=== PATIENT | male | born 1985 | race Caucasian/White ===

== ENCOUNTER 2024-08-20 02:59 | Emergency (ER) | payer OTHER, SELFPAY ==
[2024-08-20 03:06] VITALS: BP 133/90; PULSE 138; RESP 18; TEMP 36.9; O2SAT 100; BMI 39.5
--- NOTE | 2024-08-20 03:28 | ED_ITS ---
Discharge Plan Disposition Patient Disposition: Home, Self-Care Condition: Good Prescriptions Prescriptions: New ondansetron 4 mg tablet,disintegrating 4 mg PO Q6H PRN (Reason: nausea and vomiting) Qty: 10 0RF Referrals Follow up/Referrals: Kavya Alves APRN [Primary Care Provider] - See instructions Activity Restrictions/Add. Instructions Additional Instructions/Restrictions: You were evaluated in the emergency department today and diagnosed with norovirus. Please practice good handwashing at home. Eat a bland diet until symptoms are resolved. I recommend staying hydrated is much as possible. 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 Take Tylenol and ibuprofen as needed for pain. Clinical Impressions Clinical Impression: Nausea, vomiting, and diarrhea, Prerenal azotemia, Norovirus Stand Alone Forms Stand Alone Forms: Work/School Release Instructions Patient Instructions: DI for Diarrhea and Traveler's Diarrhea -- Adult, DI for Nausea -- Adult Print Language Print Language: [place] Discharge ED Provider: Vilma Quiroz General Adult HPI <Vilma Quiroz MD - Last Filed: 08/20/24 06:40> General Chief complaint: Nausea/Vomiting/Diarrhea Stated complaint: vomiting, diarrhea, nausea Time Seen by Provider: 08/20/24 03:27 Mode of Arrival: Ambulatory Source of Information: Patient Description of Symptoms (Recalled from ER Triage Doc. by RN): PT C/O NVD STARTING AROUND 0 LAST NIGHT, DENIES PAIN/FEVER. History of Present Illness HPI narrative: 39-year-old male presents to the ER with complaints of nausea, vomiting, diarrhea. Symptoms started approximately 8 hours after patient ate [place] chili. He is concerned for food poisoning. did not eat the same thing is him and does not have similar symptoms. is so was concerned if he potentially has anything infectious whether it could be dangerous to baby. Patient reports he has not had bloody or bilious emesis, diarrhea has not been bloody or melanotic. He does state he is now having bowel movements of straight water . No medications prior to arrival. Patient is concerned he is dehydrated. He reports feeling generally unwell but no specific pain, no known fevers, no chest pain or difficulty breathing, no other associated symptoms. Related Data Previous Rx's ?Medication ?Instructions ?Recorded ondansetron 4 mg disintegrating 4 mg PO Q6H PRN nausea and 08/20/24 tablet vomiting #10 tabs Allergies Allergy/AdvReac Type Severity Reaction Status Date / Time No Known Allergies Allergy Verified 05/21/19 16:32 PFSH <Vilma Quiroz MD - Last Filed: 08/20/24 06:40> PFSH Disclaimer: The information contained in this section may have been updated after the patient was seen, as this information can be updated by other users. Medical History (Updated 08/20/24 @ 07:10 by Francheska Mckee DO) Factor 5 Leiden mutation, heterozygous Social History (Updated 08/20/24 @ 06:40 by Vilma Quiroz MD) Smoking Status: Never smoker alcohol intake: never current occupational status: employed Travel in the last 8 weeks: None Have you lived/traveled outside [place] in past 30 days?: No Contact w/someone who lives/traveled outside US past 30 days?: No Exposure to someone with infectious disease in past 14 days?: No Do you have a fever (greater than 100.4 F or 38 C)?: No Have you tested positive for COVID-19: No Exposed to someone with COVID-19 in past 14 days?: No Do you have a sore throat?: No Do you have a cough?: No Do you have any weakness?: No Do you have any diarrhea?: Yes Are you experiencing any unusual bleeding?: No Do you have any muscle aches/pain?: No Do you have any abdominal pain?: No Are you experiencing loss of taste or smell?: No <Vilma Quiroz MD - Last Filed: 08/20/24 06:40> ROS Obtained: Yes Systems reviewed as appropriate & no additional complaints except as documented Per HPI Physical Exam <Vilma Quiroz MD - Last Filed: 08/20/24 06:40> General General appearance: alert, in no apparent distress and obese Head Head exam: atraumatic and normocephalic Eye Eye exam: Present PERRL and EOMI ENT ENT exam: Present mucous membranes moist Neck Neck exam: Present normal inspection and full ROM Chest Chest inspection: Present symmetric chest wall rise Respiratory Respiratory exam: Present normal lung sounds bilaterally; Absent respiratory distress, wheezes or stridor Cardiovascular Cardiovascular exam: Present normal rhythm and tachycardia Abdominal Exam Abdominal exam: Present soft; Absent distention or tenderness Extremities Exam Extremities exam: Present full ROM Neurological Exam Neurological exam: Present alert and oriented X3; Absent motor sensory deficit Psychiatric Psychiatric exam: Present normal affect and normal mood Skin Skin exam: Present warm and dry Medical Decision Making <Vilma Quiroz MD - Last Filed: 08/20/24 06:40> Medical Records Screening: Per USPSTF and CDC recommendations, given the prevalence of disease in our region, it is our hospital?s policy to screen for HIV and viral Hepatitis for all patients aged 18 and over and those with ongoing risk factors. [place] Inquiry Pt receiving controlled substance: No Vital Signs: 08/20/24 03:06 08/20/24 03:30 08/20/24 05:24 Temperature 98.4 F Temperature Source Oral Pulse Rate 132 H 119 H Pulse Rate [Apical] 138 H Respiratory Rate 18 Blood Pressure 131/97 H 114/68 Blood Pressure [Right Arm] 133/90 Blood Pressure Mean [Right Arm] 104 02 Sat by Pulse Oximetry 100 97 97 Oxygen Delivery Method Room Air Room Air Room Air Lab Data Lab Results 08/20/24 03:47: WBC 16.6 H, RBC 6.28 H, Hgb 18.1 H, Hct 53.4 H, MCV 85.0, MCH 28.8, MCHC 33.9, RDW 13.6, Plt Count 302, MPV 10.0, Neut % (Auto) 94.0 H, Lymph % (Auto) 2.1 L, [place] % (Auto) 2.7, Eos % (Auto) 0.4, Baso % (Auto) 0.4, Neut # (Auto) 15.6 H, Lymph # (Auto) 0.4 L, [place] # (Auto) 0.4, Eos # (Auto) 0.1, Baso # (Auto) 0.1, Total Counted 100, Neutrophils % (Manual) 96 H, Lymphocytes % (Manual) 1 L, Monocytes % (Manual) 1 L, Eosinophils % (Manual) 2, Platelet Estimate Normal, RBC Morphology Normal, Sodium 143, Potassium 5.1, Chloride 104, Carbon Dioxide 24, Anion Gap 20.1 H, BUN 21 H, Creatinine 1.00, Estimated Creat Clear 191, Estimated GFR 83, Est GFR ( Amer) 101, Glucose 175 H, Calcium 10.4 H, Total Bilirubin 0.9, AST 35, ALT 50, Alkaline Phosphatase 71, Total Protein 9.2 H, Albumin 5.7 H, Globulin 3.5 H, Albumin/Globulin Ratio 1.6 08/20/24 03:52: Stl Aeromonas (PCR) Not detected, Stl C. cayetanensis PCR Not detected, Stool Rotavirus (PCR) Not detected, Stl Adenov F 40/41 PCR Not detected, Stool Astrovirus (PCR) Not detected, Stool Campylobacter PCR Not detected, Stl C.difficile Tox PCR Not detected, Stool Cryptosporidium PCR Not detected, Stl E.coli Shiga Tox PCR Not detected, Stool E coli O157 PCR Not detected, Stl Enterotoxigenic E PCR Not detected, Stool EPEC (PCR) Not detected, Stool EAEC (PCR) Not detected, Stl E. histolytica PCR Not detected, Stool Giardia Lamblia PCR Not detected, Stool Salmonella PCR Not detected, Stool Sapovirus (PCR) Not detected, Stl P. shigelloides PCR Not detected, Stl Shigella/EIEC PCR Not detected, St Y.enterocolitica PCR Not detected, Stool Vibrio (PCR) Not detected, Stl Vibrio cholerae PCR Not detected, Stl Norovirus GI/GII PCR Detected A 08/20/24 03:47 08/20/24 03:47 Orders (Tests/Meds): ED MEDICATIONS Discontinued Medications Generic Name Dose Route Start Last Admin Trade Name Freq PRN Reason Stop Dose Admin Acetaminophen 1,000 mg 08/20/24 04:53 08/20/24 05:00 Acetaminophen 500mg Tab PO 08/20/24 04:54 1,000 mg ONCE ONE Administration Calcium Carbonate 500 mg 08/20/24 07:12 08/20/24 07:25 Calcium Carbonate 500mg Chewtab PO 08/20/24 07:13 500 mg ONCE ONE Administration Lactated Ringer's 1,000 mls @ 999 mls/hr 08/20/24 03:28 08/20/24 03:42 Lactated Ringer's 1000 Ml Bag IV 08/20/24 04:28 999 mls/hr .Q1H1M ONE Administration Lactated Ringer's 1,000 mls @ 999 mls/hr 08/20/24 05:17 08/20/24 05:24 Lactated Ringer's 1000 Ml Bag IV 08/20/24 06:17 999 mls/hr .Q1H1M ONE Administration Ondansetron HCl 4 mg 08/20/24 03:28 08/20/24 03:42 Ondansetron 4mg/2ml Vial IV 08/20/24 03:29 4 mg ONCE ONE Administration Ondansetron HCl 4 mg 08/20/24 06:21 08/20/24 06:35 Ondansetron 4mg/2ml Vial IV 08/20/24 06:22 4 mg ONCE ONE Administration ORDERS Category Date Time Status CBC w/Auto Diff [Complete Blood Count Auto Diff] Stat Lab 08/20/24 03:47 Completed CMP [Comprehensive Metabolic Panel] Stat Lab 08/20/24 03:47 Completed Diarrhea 6-11 Panel, Cdiff PCR Stat Lab 08/20/24 03:52 Completed Medical Decision Narrative: In summary, this 39-year-old male presents to the emergency department today with nausea, vomiting, diarrhea. On initial evaluation patient is tachycardic but otherwise hemodynamically stable, afebrile, abdominal exam benign, no peripheral edema, lungs clear bilaterally. Differential diagnosis includes but is not limited to viral syndrome, considered food poisoning, electrolyte abnormality, dehydration, infectious diarrhea, among others. Based on these concerns, I ordered basic serum labs, diarrhea panel. Patient's abdominal exam is benign so I do not believe imaging is indicated at this time. Patient received IV fluids, Zofran for treatment. He also developed headache and received Tylenol. Labs personally reviewed demonstrate leukocytosis, elevated hemoglobin, believe labs are likely related to hemoconcentration. CMP demonstrates findings of dehydration with prerenal azotemia. On reassessment patient reports he still feels dehydrated. Additional fluids are being administered. His tachycardia has improved. He states he is feeling nauseous still but has not had any additional emesis. Additional Zofran administered. Diarrhea panel pending. Patient's had to leave briefly to take the kids to school. He is still receiving IV fluids. I prescribed Zofran for outpatient management of symptoms. Patient handed off to Dr. Mckee in stable condition pending completion of diarrhea panel. I believe he will likely be appropriate for discharge after this and completing IV fluids. <Francheska Mckee, DO - Last Filed: 08/20/24 07:34> Vital Signs: 08/20/24 03:06 08/20/24 03:30 08/20/24 05:24 Temperature 98.4 F Temperature Source Oral Pulse Rate 132 H 119 H Pulse Rate [Apical] 138 H Respiratory Rate 18 Blood Pressure 131/97 H 114/68 Blood Pressure [Right Arm] 133/90 Blood Pressure Mean [Right Arm] 104 02 Sat by Pulse Oximetry 100 97 97 Oxygen Delivery Method Room Air Room Air Room Air Lab Data Lab Results 08/20/24 03:47: WBC 16.6 H, RBC 6.28 H, Hgb 18.1 H, Hct 53.4 H, MCV 85.0, MCH 28.8, MCHC 33.9, RDW 13.6, Plt Count 302, MPV 10.0, Neut % (Auto) 94.0 H, Lymph % (Auto) 2.1 L, [place] % (Auto) 2.7, Eos % (Auto) 0.4, Baso % (Auto) 0.4, Neut # (Auto) 15.6 H, Lymph # (Auto) 0.4 L, [place] # (Auto) 0.4, Eos # (Auto) 0.1, Baso # (Auto) 0.1, Total Counted 100, Neutrophils % (Manual) 96 H, Lymphocytes % (Manual) 1 L, Monocytes % (Manual) 1 L, Eosinophils % (Manual) 2, Platelet Estimate Normal, RBC Morphology Normal, Sodium 143, Potassium 5.1, Chloride 104, Carbon Dioxide 24, Anion Gap 20.1 H, BUN 21 H, Creatinine 1.00, Estimated Creat Clear 191, Estimated GFR 83, Est GFR ( Amer) 101, Glucose 175 H, Calcium 10.4 H, Total Bilirubin 0.9, AST 35, ALT 50, Alkaline Phosphatase 71, Total Protein 9.2 H, Albumin 5.7 H, Globulin 3.5 H, Albumin/Globulin Ratio 1.6 08/20/24 03:52: Stl Aeromonas (PCR) Not detected, Stl C. cayetanensis PCR Not detected, Stool Rotavirus (PCR) Not detected, Stl Adenov F 40/41 PCR Not detected, Stool Astrovirus (PCR) Not detected, Stool Campylobacter PCR Not detected, Stl C.difficile Tox PCR Not detected, Stool Cryptosporidium PCR Not detected, Stl E.coli Shiga Tox PCR Not detected, Stool E coli O157 PCR Not detected, Stl Enterotoxigenic E PCR Not detected, Stool EPEC (PCR) Not detected, Stool EAEC (PCR) Not detected, Stl E. histolytica PCR Not detected, Stool Giardia Lamblia PCR Not detected, Stool Salmonella PCR Not detected, Stool Sapovirus (PCR) Not detected, Stl P. shigelloides PCR Not detected, Stl Shigella/EIEC PCR Not detected, St Y.enterocolitica PCR Not detected, Stool Vibrio (PCR) Not detected, Stl Vibrio cholerae PCR Not detected, Stl Norovirus GI/GII PCR Detected A Orders (Tests/Meds): ED MEDICATIONS Discontinued Medications Generic Name Dose Route Start Last Admin Trade Name Freq PRN Reason Stop Dose Admin Acetaminophen 1,000 mg 08/20/24 04:53 08/20/24 05:00 Acetaminophen 500mg Tab PO 08/20/24 04:54 1,000 mg ONCE ONE Administration Calcium Carbonate 500 mg 08/20/24 07:12 08/20/24 07:25 Calcium Carbonate 500mg Chewtab PO 08/20/24 07:13 500 mg ONCE ONE Administration Lactated Ringer's 1,000 mls @ 999 mls/hr 08/20/24 03:28 08/20/24 03:42 Lactated Ringer's 1000 Ml Bag IV 08/20/24 04:28 999 mls/hr .Q1H1M ONE Administration Lactated Ringer's 1,000 mls @ 999 mls/hr 08/20/24 05:17 08/20/24 05:24 Lactated Ringer's 1000 Ml Bag IV 08/20/24 06:17 999 mls/hr .Q1H1M ONE Administration Ondansetron HCl 4 mg 08/20/24 03:28 08/20/24 03:42 Ondansetron 4mg/2ml Vial IV 08/20/24 03:29 4 mg ONCE ONE Administration Ondansetron HCl 4 mg 08/20/24 06:21 08/20/24 06:35 Ondansetron 4mg/2ml Vial IV 08/20/24 06:22 4 mg ONCE ONE Administration ORDERS Category Date Time Status CBC w/Auto Diff [Complete Blood Count Auto Diff] Stat Lab 08/20/24 03:47 Completed CMP [Comprehensive Metabolic Panel] Stat Lab 08/20/24 03:47 Completed Diarrhea 6-11 Panel, Cdiff PCR Stat Lab 08/20/24 03:52 Completed Medical Decision Narrative: In summary, this 39-year-old male presents to the emergency department today with nausea, vomiting, diarrhea. On initial evaluation patient is tachycardic but otherwise hemodynamically stable, afebrile, abdominal exam benign, no peripheral edema, lungs clear bilaterally. Differential diagnosis includes but is not limited to viral syndrome, considered food poisoning, electrolyte abnormality, dehydration, infectious diarrhea, among others. Based on these concerns, I ordered basic serum labs, diarrhea panel. Patient's abdominal exam is benign so I do not believe imaging is indicated at this time. Patient received IV fluids, Zofran for treatment. He also developed headache and received Tylenol. Labs personally reviewed demonstrate leukocytosis, elevated hemoglobin, believe labs are likely related to hemoconcentration. CMP demonstrates findings of dehydration with prerenal azotemia. On reassessment patient reports he still feels dehydrated. Additional fluids are being administered. His tachycardia has improved. He states he is feeling nauseous still but has not had any additional emesis. Additional Zofran administered. Diarrhea panel pending. Patient's had to leave briefly to take the kids to school. He is still receiving IV fluids. I prescribed Zofran for outpatient management of symptoms. Patient handed off to Dr. Mckee in stable condition pending completion of diarrhea panel. I believe he will likely be appropriate for discharge after this and completing IV fluids. DO Rafi: I assumed care of the patient at 7 AM. Diarrhea panel positive for norovirus. Labs consistent with hemoconcentration and dehydration, patient is feeling better with IV fluids with only some complaints of acid reflux. He was given oral tums. He is tolerating oral intake without issue. At this time, I feel he is appropriate for discharge home with instructions for supportive management. Strict return precautions given as well as prescription for Zofran. He was discharged after all questions were answered. Critical Care <Vilma Quiroz MD - Last Filed: 08/20/24 06:40> Critical Care Time Critical Care Time: No
[2024-08-20 03:30] VITALS: BP 131/97; PULSE 132; O2SAT 97
[2024-08-20] MEDS: ONDANSETRON 4MG/2ML VIAL 4 MG IV ×2 (03:42→06:35)
[2024-08-20] MEDS: LACTATED RINGERS 1000ML 1,000 ML 999 ML IV ×2 (03:42→05:24)
[2024-08-20 03:53] LABS: Basophils # 0.1 K/mm3 (0-0.2); Basophils % 0.4 % (0.1-2.0); Eosinophils # 0.1 K/mm3 (0.0-0.4); Eosinophils % 0.4 % (0.1-12.0); Hematocrit 53.4 % (42.0-52.0); Lymphocytes # 0.4 K/mm3 (0.7-4.5); Lymphocytes % 2.1 % (10-50); Mean Corpuscular HGB Conc 33.9 g/dL (31.8-35.4); Mean Corpuscular Hemoglobin 28.8 pg (27.0-31.2); Monocytes # 0.4 K/mm3 (0.1-1.0); Monocytes % 2.7 % (1.7-9.3); Neutrophils # 15.6 K/mm3 (1.8-7.8); Platelet Count 302 K/mm3 (142-424); Red Blood Count 6.28 M/mm3 (4.60-6.20); Red Cell Distribution Width 13.6 % (11.5-17.5); White Blood Count 16.6 K/mm3 (4.8-10.8)
[2024-08-20 03:58] LABS: MANUAL DIFFERENTIAL MANUAL DIFFERENTIAL (MANUAL DIFF)
[2024-08-20 03:59] LABS: Hemoglobin 18.1 g/dL (14.1-18.0)
[2024-08-20 04:02] LABS: Albumin Level 5.7 g/dl (3.5-5.0); Chloride 104 mmol/L (98-107); Potassium 5.1 mmoL/L (3.5-5.1); Sodium 143 mmol/L (136-145)
[2024-08-20 04:05] LABS: Alanine Aminotransferase 50 U/L (12-78); Albumin/Globulin Ratio 1.6 (1.1-1.8); Alkaline Phosphatase 71 U/L (38-126); Anion Gap 20.1 mEq/L (5-15); Aspartate Amino Transferase 35 U/L (17-59); Bilirubin,Total 0.9 mg/dl (0.2-1.3); Blood Urea Nitrogen 21 mg/dl (9-20); Calcium 10.4 mg/dl (8.4-10.2); Carbon Dioxide 24 mmol/L (22.0-30.0); Creatinine Clearance Estimated 191 mL/min (50-200); Estimated Glomerular Filt Rate 83 ml/min (>60); GFR (African American) 101 ML/MIN (>60); Globulin 3.5 g/dL (1.3-3.2); Glucose 175 mg/dl (74-100); Total Protein,Serum 9.2 g/dl (6.3-8.2)
[2024-08-20 04:35] LABS: Eosinophils % 2 % (0-3); Lymphocytes % 1 % (10-50); Monocytes % 1 % (2-9); Neutrophils % 96 % (42-76); Platelet Estimate Normal; RBC Morphology Normal; Total Cells Counted 100
[2024-08-20 04:54] LABS: Adenovirus F 40/41, stool Not Detected (NotDetected); Astrovirus Not Detected (NotDetected); Campylobacter Not Detected (NotDetected); Clostridium Difficile A/B, PCR Not Detected (NotDetected); Cryptosporidium Not Detected (NotDetected); Cyclospora Cayetanesis Not Detected (NotDetected); Entamoeba histolytica Not Detected (NotDetected); Enteroaggregative E coli Not Detected (NotDetected); Enteropathogenic E coli Not Detected (NotDetected); Enterotoxigenic E coli Not Detected (NotDetected); Giardia lamblia Not Detected (NotDetected); Plesimonas Shigalloides, PCR Not Detected (NotDetected); Rotavirus A Not Detected (NotDetected); Salmonella, PCR Not Detected (NotDetected); Sapovirus Not Detected (NotDetected); Shiga-like toxin E coli Not Detected (NotDetected); Shigella Enterovasive E coli Not Detected (NotDetected); Vibrio Cholerae Not Detected (NotDetected); Vibrio, PCR Not Detected (NotDetected); Yersinia Entercolitica, PCR Not Detected (NotDetected)
[2024-08-20] MEDS: ACETAMINOPHEN 500MG TAB 1000 MG PO (05:00)
[2024-08-20 05:24] VITALS: BP 114/68; PULSE 119; O2SAT 97
[2024-08-20 07:09] LABS: Norovirus Detected (NotDetected)
[2024-08-20] MEDS: CALCIUM CARBONATE 500MG CHEWTAB 500 MG PO (07:25)
[2024-08-20 07:40] VITALS: BP 114/68; PULSE 102; RESP 18; TEMP 36.9; O2SAT 97
== END 2024-08-20 07:42 | disposition home or self-care (01) ==
PROVIDERS: Emergency Provider Emergency Medicine; PCP Nurse Practitioner Family
DX: A08.11 Acute gastroenteropathy due to Norwalk agent (principal); R79.89 Other specified abnormal findings of blood chemistry; R11.2 Nausea with vomiting, unspecified; R19.7 Diarrhea, unspecified; R00.0 Tachycardia, unspecified
CPT/HCPCS: 80053; 85007; 85025; 85027; 87506; 96361; 96374; 96376; 99284; J2405; J7120